=== PATIENT | male | born 1995 | race Caucasian/White ===

== ENCOUNTER 2017-11-23 01:17 | Emergency (ER) | payer BC ==
[~2017-11-23] VITALS: Ht 175.3 cm; Wt 77.3 kg
[2017-11-23 01:20] VITALS: TEMP 98.5
[2017-11-23] MEDS ORDERED: ATARAX 25MG25 MG/TAB PO (02:29)
[2017-11-23 03:10] VITALS: BP 132/81; PULSE 77
== END 2017-11-23 03:10 | disposition home or self-care (01) ==
LOC: COL.ER 01:17
DX: R00.2 Palpitations (principal); F41.9 Anxiety disorder, unspecified; Z72.89 Other problems related to lifestyle